=== PATIENT | male | born 1940 | race African-American/Black ===

== ENCOUNTER 2016-07-30 19:11 | Observation (INO) ==
[2016-07-30 20:12] LABS: Immature Granulocytes % 0.2 % (0-4)
[2016-07-30 20:14] LABS: Basophils # 0.1 K/mcL (0.0-0.2); Basophils % 1.3 %; Eosinophils # 0.1 K/mcL (0.0-0.6); Eosinophils % 1.8 %; Hematocrit 26.9 % (37.5-50.1); Immature Platelets 5.9 % (1.1-6.1); Lymphocytes # 1.7 K/mcL (0.6-4.6); Lymphocytes % 31.5 %; Mean Corpuscular Hemoglobin 16.3 pg (28.0-33.3); Mean Corpuscular Volume 62.7 fL (83.0-100.0); Mean Platelet Volume 10.1 fL (9.4-12.4); Monocytes # 0.9 K/mcL (0.0-1.3); Monocytes % 16.8 %; Platelet Count 362 K/mcL (140-400); Red Blood Count 4.29 M/mcL (4.19-5.50); Red Cell Distribution Width 21.2 % (11.5-14.5); Segmented Neutrophils % 48.4 %
[2016-07-30 20:25] LABS: BUN/Creatinine Ratio 22 (6-26); Blood Urea Nitrogen 20 mg/dL (8-26); Calcium 9.2 mg/dL (8.6-10.8); Carbon Dioxide 24 mEq/L (19-29); Chloride 105 mEq/L (98-109); Glucose 109 mg/dL (70-99); Osmolality,Calculated 291 (280-300); Potassium 4.6 mEq/L (3.5-4.5); Sodium 139 mEq/L (136-145); eGFR For African Americans > 60 (> 60); eGFR For Non-African Americans > 60 (> 60)
[2016-07-30 20:26] LABS: Neutrophils # 2.7 K/mcL (1.6-8.9)
[2016-07-30 20:33] LABS: Anisocytosis 1+ (Not Present); Hypochromasia Present (Not Present); Large Platelets Present (Not Present); Microcytosis Present (Not Present)
--- NOTE | 2016-07-30 21:33 | Emergency Department Note ---
Disposition Clinical Impression: Congestive heart failure Qualifiers: Congestive heart failure type: unspecified congestive heart failure type Congestive heart failure chronicity: unspecified congestive heart failure chronicity Qualified Code(s): I50.9 - Heart failure, unspecified Anemia Qualifiers: Anemia type: unspecified type Qualified Code(s): D64.9 - Anemia, unspecified Disposition: Admitted As Inpatient Condition: Fair Referrals: Terry Arboleda MD [Primary Care Provider] - Forms: ED Satisfaction Letter Time of Disposition: 22:33 SOB HPI - General Chief Complaint: ED Shortness of Breath/Dyspnea Stated Complaint: sent from urgent care abdominal pain fay Time Seen by Provider: 07/30/16 20:28 Source: patient, family Limitations: no limitations Nursing Notes Reviewed: Yes Vital Signs Reviewed: Yes - History of Present Illness Patient is a 76-year-old -[place] male presents from urgent care with one-week history of her sitting weakness, fatigue, dyspnea on exertion. Patient states that dyspnea improves with rest. Patient states that his fatigue and dyspnea on exertion are worsened by walking too far. Patient states that he is capable of walking about 50 feet before becoming short of breath. He states that he is able to climb only one flight of stairs without stopping. Patient denies any headache, dizziness, chest pain, racing heart, palpitations, leg swelling, dyspnea at rest, cough, wheeze, abdominal pain, nausea, vomiting, diarrhea, constipation, hematochezia, melena, dysuria, hematuria. Patient does admit recent trauma to chest. Patient states that one week ago he tripped over a heater during the night in his home following on his ribs. He should not has a history of NC with stent placement 22 years ago. - Related Data Allergies Allergy/AdvReac Type Severity Reaction Status Date / Time No Known Allergies Allergy Verified 07/30/16 19:13 All systems ED: reviewed and negative except as stated. Constitutional: Reports: as per HPI Eyes: Reports: as per HPI ENT ED: Reports: as per HPI Cardiovascular: Reports: as per HPI Gastrointestinal: Reports: as per HPI Genitourinary: Reports: as per HPI Musculoskeletal: Reports: as per HPI Integumentary: Reports: as per HPI Neurological: Reports: as per HPI Psychiatric: Reports: as per HPI Endocrine: Reports: as per HPI Hematological/Lymphatic: Reports: as per HPI Allergic/Immunologic: Reports: as per HPI Past Medical History - Past Medical History Medical history: Reports: diabetes, myocardial infarction - Social History Smoking Status: Former smoker Smokeless Tobacco Status: No Alcohol use: Reports: none Drug use: Reports: none Physical Exam - General Limitations: no limitations General appearance: alert, in no apparent distress - Head Head exam: atraumatic, normocephalic - Eye Eye exam: Present: normal appearance, EOMI - ENT ENT exam: normal exam, mucous membranes moist - Neck Neck exam: Present: normal inspection, full ROM. Absent: trachea midline, tenderness, lymphadenopathy - Chest Chest inspection: Present: normal inspection, symmetric chest wall rise, other ( Large scar to central chest). Absent: tenderness, rash - Respiratory Respiratory exam: Present: other (bilateral rales to lung bases left greater than right) - Cardiovascular Cardiovascular exam: Present: regular rate, normal rhythm, systolic murmur (2/6 systolic murmur), +S2. Absent: diastolic murmur - Abdominal Exam Abdominal exam: Present: soft, Non-Tender, normal bowel sounds. Absent: distention, guarding, rebound, rigidity, diminished bowel sounds - Extremities Exam Extremities exam: Present: normal inspection, full ROM - Neurological Exam Neurological exam: Present: alert, oriented X3, CN II-XII intact - Psychiatric Psychiatric exam: Present: normal affect, normal mood - Skin Skin exam: Present: warm, dry, intact Course Vital Signs Temperature 98 F 07/30/16 19:12 Pulse Rate 81 07/30/16 19:12 Respiratory Rate 20 07/30/16 19:12 Blood Pressure 119/74 07/30/16 19:12 O2 Sat by Pulse Oximetry 99 07/30/16 19:12 Temperature 98 F 07/30/16 19:12 Pulse Rate 81 07/30/16 19:12 Respiratory Rate 20 07/30/16 19:12 Blood Pressure 119/74 07/30/16 19:12 O2 Sat by Pulse Oximetry 99 07/30/16 19:12 Oxygen Delivery Oxygen Delivery Room Air Shortness of Breath/Dyspnea - [facility] Narrative Medical decision making narrative: Patient presents to the hospital from urgent care today with complaint of dyspnea on exertion and fatigue for the last week. Urgent care performed and chest x-ray which revealed bilateral pulmonary effusions and cardiomegaly. Upon arrival patient had an EKG which demonstrated normal sinus rhythm at a rate of 76 bpm, first-degree AV block, right bundle branch block. Patient had an initial troponin of 0.06, a BNP of 1000, and hemoglobin of 7.0. Patient will be admitted to the hospital for congestive heart failure and anemia. She is stable at this time. Patient was accepted by Dr. Shea, hospitalist. - Differential Diagnosis Likely: congestive heart failure - Medical Records Medical records reviewed: Yes I reviewed the patient's medical records. - Lab Data Lab results reviewed: Yes I reviewed the patient's lab results. Result diagrams: 07/30/16 20:04 07/30/16 20:04 Lab Results 07/30/16 07/30/16 07/30/16 Range/Units 20:04 20:04 20:04 WBC 5.5 (4.3-11.1) K/mcL RBC 4.29 (4.19-5.50) M/mcL Hgb 7.0 L (12.9-16.9) g/dL Hct 26.9 L (37.5-50.1) % MCV 62.7 L (83.0-100.0) fL MCH 16.3 L (28.0-33.3) pg MCHC 26.0 L (31.6-35.5) g/dL RDW 21.2 H (11.5-14.5) % Plt Count 362 (140-400) K/mcL MPV 10.1 (9.4-12.4) fL Immature Gran % 0.2 (0-4) % Seg Neutrophils % 48.4 % Lymphocytes % 31.5 % Monocytes % 16.8 % Eosinophils % 1.8 % Basophils % 1.3 % Neutrophils # 2.7 (1.6-8.9) K/mcL Lymphocytes # 1.7 (0.6-4.6) K/mcL Monocytes # 0.9 (0.0-1.3) K/mcL Eosinophils # 0.1 (0.0-0.6) K/mcL Basophils # 0.1 (0.0-0.2) K/mcL Large Platelets Present A (Not Present) Immature Plt Fraction 5.9 (1.1-6.1) % Hypochromasia Present A (Not Present) Anisocytosis 1+ A (Not Present) Microcytosis Present A (Not Present) Sodium 139 (136-145) mEq/L Potassium 4.6 H (3.5-4.5) mEq/L Chloride 105 (98-109) mEq/L Carbon Dioxide 24 (19-29) mEq/L BUN 20 (8-26) mg/dL Creatinine 0.92 (0.72-1.25) mg/dL Est GFR ( Amer) > 60 (> 60) Est GFR (Non-Af Amer) > 60 (> 60) BUN/Creatinine Ratio 22 (6-26) Glucose 109 H (70-99) mg/dL Calculated Osmolality 291 (280-300) Calcium 9.2 (8.6-10.8) mg/dL Troponin I 0.06 H* (0-0.03) ng/mL B-Natriuretic Peptide (0-100) pg/mL 07/30/16 Range/Units 20:04 WBC (4.3-11.1) K/mcL RBC (4.19-5.50) M/mcL Hgb (12.9-16.9) g/dL Hct (37.5-50.1) % MCV (83.0-100.0) fL MCH (28.0-33.3) pg MCHC (31.6-35.5) g/dL RDW (11.5-14.5) % Plt Count (140-400) K/mcL MPV (9.4-12.4) fL Immature Gran % (0-4) % Seg Neutrophils % % Lymphocytes % % Monocytes % % Eosinophils % % Basophils % % Neutrophils # (1.6-8.9) K/mcL Lymphocytes # (0.6-4.6) K/mcL Monocytes # (0.0-1.3) K/mcL Eosinophils # (0.0-0.6) K/mcL Basophils # (0.0-0.2) K/mcL Large Platelets (Not Present) Immature Plt Fraction (1.1-6.1) % Hypochromasia (Not Present) Anisocytosis (Not Present) Microcytosis (Not Present) Sodium (136-145) mEq/L Potassium (3.5-4.5) mEq/L Chloride (98-109) mEq/L Carbon Dioxide (19-29) mEq/L BUN (8-26) mg/dL Creatinine (0.72-1.25) mg/dL Est GFR ( Amer) (> 60) Est GFR (Non-Af Amer) (> 60) BUN/Creatinine Ratio (6-26) Glucose (70-99) mg/dL Calculated Osmolality (280-300) Calcium (8.6-10.8) mg/dL Troponin I (0-0.03) ng/mL B-Natriuretic Peptide 1097 H (0-100) pg/mL - Radiology Data Radiology results reviewed: Yes I reviewed the patient's radiology results. - EKG Data EKG attestation: Yes I reviewed and interpreted this EKG. EKG results narrative: Normal sinus rhythm at rate of 76 bpm with first-degree AV block and right bundle branch block Attestation Statement - Attestation Attestation: I, Te Maria MD, personally evaluated this patient and discussed their management with the resident physician. I reviewed the resident's note and agree with the documented findings, medical decision making, and plan of care. 76-year-old male presents to the emergency department with a complaint of increasing shortness of breath and fatigue with exertion over the past week. No chest pain. He was apparently seen by PCP and referred to urgent care for a chest x-ray of the and referred here for further evaluation. Patient states he does have a history of an NC more than 20 years ago. He has a history of diabetes and hypertension. On examination patient is a well-developed well-nourished well-appearing elderly male in no acute distress. He is alert and oriented 3. There is no cyanosis or diaphoresis. Chest is nontender to palpation. Breath sounds are decreased but equal bilaterally with no rales or wheezes noted. Heart regular rate and rhythm. Abdomen is soft and nontender with normal bowel sounds. Labs reviewed. Hemoglobin 7.0. Troponin 0.06. No acute changes on EKG. Chest x-ray done at urgent care showed mild pulmonary vascular congestion and interstitial edema without overt pulmonary edema. Also small bilateral pleural effusions with mild bibasilar atelectasis or infiltrates. The hospitalist, Dr. Shea, was consulted and accepted admission of the patient.
[2016-07-30] MEDS ORDERED: Furosemide 40 MG/4 ML VIAL IVP ONE (21:58)
[2016-07-31] MEDS ORDERED: Acetaminophen 325 MG TABLET PO PRN (04:43)
[2016-07-31] MEDS ORDERED: Naloxone 0.4 MG/ML INJ IVP PRN (04:43)
[2016-07-31] MEDS ORDERED: *HR* Morphine 2 MG/ML SYRINGE IVP PRN (04:43)
[2016-07-31] MEDS ORDERED: Ondansetron 4 MG/2 ML VIAL IVP PRN (04:43)
[2016-07-31] MEDS ORDERED: D5% in Water 1,000 ML IVC PRN (04:49)
[2016-07-31] MEDS ORDERED: *HR* Dextrose 50 % in Water (Syg) 50 ML SYRINGE IVP PRN (04:49)
[2016-07-31] MEDS ORDERED: Albuterol 2.5 MG/3 ML NEBULIZER IH PRN (04:49)
[2016-07-31] MEDS ORDERED: Dextrose Gel 15 GM PO PRN ×2 (04:49)
--- NOTE | 2016-07-31 05:08 | Internal Med History&Physical ---
Date of Encounter: 07/31/16 Time of Encounter: 04:52 Assessment and Plan (1) Symptomatic anemia Current visit: Yes Status: Acute 1. I do not feel he has CHF; rather I feel he has symptomatic anemia causing his exertional dyspnea. 2. Will collect iron studies and transfuse PRBC's in hopes of alleviating his symptoms. 3. Pt will need EGD +/- colonoscopy -- can be done as outpatient unless he has active bleeding. He does not give nay history of bleeding, however. 4. Start IV PPI BID. 5. Stool hemoccult. (2) Hypertension Current visit: Yes Status: Chronic 1. Continue home BP meds; adjust as necessary. 2. Will check ECHO to evaluate cardiac anatomy and to rule out pericardial effusion given chest wall trauma recently. Qualifiers: Hypertension type: essential hypertension Qualified Code(s): I10 - Essential (primary) hypertension (3) Type 2 diabetes mellitus Current visit: Yes Status: Chronic 1. Hold Metformin. 2. Will use SSI and monitor glucose closely. 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 EPCD's. Internal Medicine - H&P: HPI Chief complaint: SOB Admitted From: Emergency Dept Plans for Post Hospital Care: Home History of present illness: Mr. Perez is a 76 year old male who was seen in the ER earlier [facility] for complaints of exertional dyspnea. Symptoms started a few days ago, and this prompted him to contact his family doctors office. He was referred to the urgent care, and he was seen and evaluated. Chest x-ray revealed some cardiomegaly and concern for pulmonary vascular congestion. As such, there was concern for CHF, and he was referred to the ER. In the ER, he was treated for CHF empirically and admitted to the hospitalist service. Upon my assessment of the patient, he reiterates that he developed dyspnea on exertion over the last couple days. He denies any chest pain, edema, weight gain, increasing abdominal girth, or chest pressure. He fell a few days ago and landed on his space heater, sustaining mild injury to his chest wall. Thereafter, he developed shortness of breath. He denies any history of heart failure in the past. He does have a history of coronary disease and had a PTCA/ stent 22 years ago. He also is a former smoker and smoked about 35-40 years. He has never been diagnosed with COPD, but I suspect he has some underlying COPD. He was given dose of Lasix in the ER for treatment of presumptive CHF. However, he does not feel any better despite the diuresis. I note that he is profoundly anemic, and I inquired about any possible GI blood loss. He denies any bleeding in his stool, but he did confirm to me had a history of gastric ulcers many years ago leading to multiple transfusions back then. He had a colonoscopy a few years ago which he reports was negative. He has not had an EGD in over 15 years, however. He denies any frequent use of NSAIDs. He seldom ever uses ibuprofen, but he does take a daily aspirin. He he usually uses Tylenol for daily aches and pains. He denies any alcohol use. Past Med Surg Social Fam HX - Past Medical History Attestation: Yes The following information was validated with the patient. Source: patient, old records reviewed Medical history: diabetes, myocardial infarction Psychiatric history: no psych history - Past Surgical History Surgical History: angioplasty/stent - Social History Smoking Status: Former smoker Smokeless Tobacco Status: No Alcohol use: none Drug use: none - Family History Mother Living Status: Hx Family GI Disorders: No Father Living Status: Hx Family GI Disorders: No Internal Medicine - H&P: Meds Acetaminophen [Tylenol] 650 mg PO Q6HR PRN 07/30/16 [History] Amlodipine Besylate 10 mg PO DAILY 07/30/16 [History] Aspirin Enteric Coated [Aspirin EC] 81 mg PO DAILY 07/30/16 [History] Metformin HCl [Glucophage] 1,000 mg PO BID 07/30/16 [History] Omeprazole [PriLOSEC] 20 mg PO DAILY 07/30/16 [History] Allergies No Known Allergies Allergy (Verified 07/30/16 19:13) - Constitutional Constitutional: no chills, no fever(s) - EENT Eyes: no blurry vision, no change in vision Ears: no ear pain, no tinnitus Nose, mouth and throat: no nasal congestion, no sinus pressure, no sore throat - Cardiovascular Cardiovascular ROS IM: dyspnea, dyspnea on exertion, no chest pain, no diaphoresis, no edema, no lightheadedness, no orthopnea, no palpitations, no paroxysmal nocturnal dyspnea - Respiratory Respiratory: no cough, no dyspnea, no hemoptysis, no dyspnea on exertion, no pain on inspiration, no chest congestion - Gastrointestinal Gastrointestinal: no abdominal pain, no diarrhea, no early satiety, no hematemesis, no hematochezia, no melena, no nausea, no vomiting - Genitourinary Genitourinary ROS male: no dysuria, no flank pain, no hematuria - Musculoskeletal Musculoskeletal ROS IM: stiffness, no joint swelling, no limited range of motion - Integumentary Integumentary IM: no rash, no jaundice - Neurological Neurological ROS: no dizziness, no focal weakness, no frequent falls, no headache(s), no vertigo - Psychiatric Psychiatric: no anxiety, no depression - Endocrine Endocrine IM: no cold intolerance, no heat intolerance, no polydipsia, no polyuria - Hematologic/Lymphatic Hematologic/Lymphatic: no easy bruising, no lymphadenopathy - Allergic/Immunologic Allergic/Immunologic: no wheezing, no GI upset with certain foods - Constitutional Vitals: Temp Pulse Resp BP Pulse Ox 97.7 F 85 15 187/91 97 07/31/16 04:32 07/31/16 04:32 07/31/16 04:32 07/31/16 04:32 07/31/16 04:32 General appearance: Present: cooperative, A&O X 3, pleasant, no acute distress, answers questions appropriately - Head Head exam: Present: atraumatic, normal inspection - Expanded Head Exam Head exam expanded: Absent: abrasion, contusion, general tenderness - Eye Eye exam: Present: EOMI, normal appearance, PERRL. Absent: scleral icterus Pupils: Present: normal accommodation - ENT ENT exam: Present: mucous membranes dry, normal exam, normal oropharynx - Neck Neck exam general surgery: Present: full ROM, supple. Absent: lymphadenopathy, tenderness, thyromegaly - Expanded Neck Exam Neck exam: Absent: anterior neck swelling, carotid bruit, tenderness - Respiratory Respiratory exam: Present: decreased breath sounds, wheezes. Absent: accessory muscle use, chest wall tenderness, rales, respiratory distress, rhonchi - Cardiovascular Cardiovascular exam: Present: RRR, +S1, +S2. Absent: diastolic murmur, JVD, systolic murmur - GI/Abdominal GI/Abdominal exam: Present: normal bowel sounds, soft. Absent: guarding, hepatomegaly, mass, rebound, splenomegaly, tenderness - Extremities Exam Extremities exam: Present: full ROM, radial pulses palpable and symetrical. Absent: calf tenderness, joint swelling - Back Exam Back exam: Present: normal inspection. Absent: CVA tenderness (L), CVA tenderness (R) - Neurological Exam Neurological exam: Present: alert, CN II-XII intact, oriented X3, no focal deficits - Psychiatric Psychiatric exam: Present: normal affect, normal mood - Skin Skin exam: Present: dry, warm. Absent: rash Internal Med - H&P Results - Labs CBC & Chem 7: 07/30/16 20:04 07/30/16 20:04 - EKG Data -: EKG Interpreted by Myself EKG shows normal: sinus rhythm - EKG Data Prior EKG available for review: yes When compared to previous EKG: there is no significant change EKG comments: 07/31/16 05:16 Sinus rhythm; RBBB - Diagnostic Studies Chest x-ray Status: image reviewed by me (cardiomegaly but I don't appreciate CHF findings)
[2016-07-31 05:44] LABS: INR 1.4; Prothrombin Time 14.9 Seconds (9.4-12.1)
[2016-07-31 05:45] LABS: Basophils % 1.3 %; Hemoglobin 6.8 g/dL (12.9-16.9); Hemoglobin A1C 5.6 %
[2016-07-31 05:46] LABS: Basophils # 0.1 K/mcL (0.0-0.2); Eosinophils # 0.1 K/mcL (0.0-0.6); Eosinophils % 1.9 %; Hematocrit 25.3 % (37.5-50.1); Immature Granulocytes % 0.2 % (0-4); Lymphocytes # 1.2 K/mcL (0.6-4.6); Lymphocytes % 25.5 %; Mean Corpuscular HGB Conc 26.9 g/dL (31.6-35.5); Mean Corpuscular Hemoglobin 16.7 pg (28.0-33.3); Mean Corpuscular Volume 62.2 fL (83.0-100.0); Mean Platelet Volume 10.7 fL (9.4-12.4); Monocytes # 0.7 K/mcL (0.0-1.3); Monocytes % 15.1 %; Neutrophils # 2.6 K/mcL (1.6-8.9); Platelet Count 373 K/mcL (140-400); Red Blood Count 4.07 M/mcL (4.19-5.50); Red Cell Distribution Width 21.4 % (11.5-14.5)
[2016-07-31 05:47] LABS: Activated Partial Thrombo Time 31.7 Seconds (26.0-36.0)
[2016-07-31 05:55] LABS: % Iron Saturation 2 % (20-55); Alanine Aminotransferase 14 Units/L (0-55); Albumin 3.4 g/dL (3.5-5.0); Albumin/Globulin Ratio 0.8 (1.1-2.2); Alkaline Phosphatase 55 Units/L (38-126); Aspartate Amino Transferase 21 Units/L (5-34); BUN/Creatinine Ratio 21 (6-26); Bilirubin,Total 0.5 mg/dL (0.2-1.2); Blood Urea Nitrogen 20 mg/dL (8-26); Calcium 8.9 mg/dL (8.6-10.8); Carbon Dioxide 25 mEq/L (19-29); Chloride 104 mEq/L (98-109); Globulin 4.2 g/dL (2.4-3.5); Glucose 141 mg/dL (70-99); Iron 9 mcg/dL (65-175); Magnesium 1.9 mg/dL (1.6-2.6); Osmolality,Calculated 289 (280-300); Potassium 4.2 mEq/L (3.5-4.5); Sodium 137 mEq/L (136-145); Total Protein 7.6 g/dL (6.0-8.3); Transferrin 306 mg/dL (174-364); eGFR For African Americans > 60 (> 60); eGFR For Non-African Americans > 60 (> 60)
[2016-07-31 06:40] LABS: Anisocytosis 1+ (Not Present); Hypochromasia Present (Not Present); Microcytosis Present (Not Present); Platelet Estimate Normal (Normal)
[2016-07-31] MEDS: Insulin LISPRO 300 UNITS/3 ML VIAL SQ SCH ×3 (08:12→16:41)
[2016-07-31] MEDS ORDERED: 0.9 % Sodium Chloride 500 ML ONE (08:13)
[2016-07-31] MEDS: amLODIPine 5 MG TABLET PO SCH (08:16)
[2016-07-31] MEDS: Pantoprazole 40 MG VIAL IVP SCH ×2 (08:16→19:58)
[2016-07-31] MEDS: Aspirin Enteric Coated 81 MG Tablet PO SCH (08:16)
[2016-07-31] MEDS: Sucralfate 1 GM TABLET PO SCH ×4 (08:16→20:00)
--- NOTE | 2016-07-31 10:48 | Event Note ---
Date of Encounter: 07/31/16 Time of Encounter: 10:45 patient seen at the bedside, denies any other complaints. started on blood transfusion last night, getting second unit now. he denies any sob or chest pain at this time, he was given 40 mg of IV lasix at ED CXR showed intertitial edema , BNP is elevated, mild elevation of trop, no leg edema SOB may be 2/2 new onset CHF or anemia he denies black stool, hematemesis, last colonoscopy 1 yr ago which was unremarkable will follow ECHO results, if CHF, will consult Cardio. repeat cbc after 2 units, follow occult stool results, if positive he will need EGD/colonosocpy which can be done as OP.
[2016-07-31] MEDS: Ipratropium/Albuterol Neb 3 ML IH SCH ×4 (10:53→21:56)
[2016-07-31] MEDS ORDERED: Furosemide 20 MG/2 ML VIAL IVP ONE (10:59)
[2016-07-31 15:45] LABS: Basophils # 0.1 K/mcL (0.0-0.2); Basophils % 0.9 %; Eosinophils # 0.1 K/mcL (0.0-0.6); Hematocrit 30.1 % (37.5-50.1); Immature Granulocytes % 0.2 % (0-4); Immature Platelets 5.9 % (1.1-6.1); Lymphocytes # 1.8 K/mcL (0.6-4.6); Lymphocytes % 27.6 %; Mean Corpuscular HGB Conc 27.9 g/dL (31.6-35.5); Mean Corpuscular Hemoglobin 18.1 pg (28.0-33.3); Mean Corpuscular Volume 64.7 fL (83.0-100.0); Mean Platelet Volume 9.5 fL (9.4-12.4); Monocytes # 1.1 K/mcL (0.0-1.3); Monocytes % 16.7 %; Neutrophils # 3.4 K/mcL (1.6-8.9); Platelet Count 338 K/mcL (140-400); Red Blood Count 4.65 M/mcL (4.19-5.50); Red Cell Distribution Width 22.7 % (11.5-14.5); Segmented Neutrophils % 52.6 %
[2016-07-31 15:47] LABS: Hemoglobin 8.4 g/dL (12.9-16.9)
[2016-07-31 16:17] LABS: Anisocytosis 2+ (Not Present); Hypochromasia Present (Not Present); Large Platelets Present (Not Present); Microcytosis Present (Not Present); Ovalocytes 1+ (Not Present); Platelet Estimate Normal (Normal); Poikilocytosis 2+ (Not Present); Target Cells 1+ (Not Present)
--- NOTE | 2016-07-31 17:15 | ECHO - Doppler Report ---
Echocardiogram Name: Aaron Perez Date of Study: 07/31/2016 Date: 1940 Ht: 75.0 in Medical Record#: [id number] Age: 76 Wt: 205.0 lb Gender: Male BSA: 2.22 Order #: [id number] Location: [facility] Room #: 2A33 Reading Physician: Rainer Marlow DO, FACC, WAQAR Motor Racer: ARIC BishopT, [facility] Ordering Physician: Broderick Neumann MD Primary Physician: Terry Arboleda MD Indications: Exertional dyspnea Impressions: LVEF 30-35%. Left ventricle is mildly dilated. Moderate concentric left ventricular hypertrophy. Global left ventricular systolic dysfunction. Mild left ventricular diastolic dysfunction. Normal right ventricular size with mildly reduced function. Moderate to severely dilated left atrium. Mild mitral regurgitation. Mild tricuspid regurgitation. Severe pulmonary hypertension. Estimated RVSP is 58 mmHg. Left Ventricular Wall Motion: Rest Echo Findings The apex, apical inferior, mid inferior, basal inferior, apical anterior, mid anterior, basal anterior, apical septal, mid inferior septal, basal inferior septal, apical lateral, mid anterior lateral, basal anterior lateral, mid anterior septal, mid inferior lateral, basal anterior septal and basal inferior lateral rudolph were hypokinetic. Findings: Study Quality * Technically adequate exam. ECG Findings * Normal sinus rhythm. Left Ventricle * LVEF 30-35%. * Left ventricle is mildly dilated. * Moderate concentric left ventricular hypertrophy. * Global left ventricular systolic dysfunction. * Mild left ventricular diastolic dysfunction. Right Ventricle * Normal right ventricular size with mildly reduced function. Left Atrium * Moderate to severely dilated left atrium. Right Atrium * Moderately dilated right atrium. Interatrial Septum * No evidence of PFO by color Doppler. Aortic Valve * Trileaflet aortic valve. * Mildly sclerotic aortic valve leaflets. * No aortic regurgitation. * No aortic stenosis. Mitral Valve * Mildly thickened mitral valve leaflets. * Mild mitral regurgitation. * No mitral stenosis. Tricuspid Valve * Normal tricuspid valve structure. * Mild tricuspid regurgitation. * Severe pulmonary hypertension. * Estimated RVSP is 58 mmHg. * Estimated RA pressure is 5 mmHg. Pulmonic Valve * Normal pulmonic valve structure and function. * Trace pulmonic regurgitation. Aorta * Normally sized aortic root. Pericardium * The pericardium appears normal. IVC * Normal IVC dimensions and inspiratory collapse. Pulmonary Artery * Normal visualized portions of the main pulmonary artery. History Diabetes Myocardial Infarction Measurements: BP: 171/ 91 2D Normal Values RVIDd: 3.40 cm <2.7 cm IVSd: 1.90 cm 0.6 - 1.0 cm LVIDd: 6.00 cm 3.7 - 5.6 cm LVPWd: 1.20 cm 0.6 - 1.1 cm LVIDs: 4.90 cm 1.5 - 3.6 cm AO: 3.20 cm < 4.0 cm LA: 4.50 cm 2.0 - 4.0cm %FS: 18.30 cm >25 % LA volume: 71 Mitral Valve Dec Time:165.00 msec Peak E:1.21 m/sec Peak A:1.46 m/sec E/A Ratio:0.8 Peak E' Lat Tim:5.65 cm/s Peak E' Med Tim:5.85 cm/s E/E' Lat Ratio:21.4 E/E' Med Ratio:20.7 Aortic Valve AI pressure Half-time: 487.00 msec Tricuspid Valve TV Regurg Peak Grad: 53.00mmHg TV Regurg Peak Tim: 3.63m/sec Updated by Rainer Marlow DO, FACJose, WAQAR, ALVIN on 07/31/2016 5:09:24 PM electronically signed on 07/31/2016 5:10:01 PM with status of Final Wall Motion Rivera: 1=Normal, 2=Hypokinesis, 3=Akinesis, 4=Dyskinesis, 5=Aneurysmal, 6=Hyperkinetic, X=Not Visualized (Blank)=Missing
[2016-07-31] MEDS ORDERED: GuaiFENesin Liq 200 MG/10 ML UDC PO PRN (20:57)
[2016-08-01] MEDS: Ipratropium/Albuterol Neb 3 ML IH SCH ×2 (04:06→11:22)
[2016-08-01 04:58] LABS: Cholesterol 96 mg/dL (< 200); HDL Cholesterol 32 mg/dL (40-59); LDL Cholesterol,Calculated 51 mg/dL (0-99); Triglycerides 63 mg/dL (< 150)
[2016-08-01 08:07] LABS: Basophils # 0.1 K/mcL (0.0-0.2); Basophils % 0.9 %; Eosinophils # 0.2 K/mcL (0.0-0.6); Eosinophils % 2.7 %; Hematocrit 28.5 % (37.5-50.1); Hemoglobin 7.9 g/dL (12.9-16.9); Immature Granulocytes % 0.3 % (0-4); Lymphocytes # 1.7 K/mcL (0.6-4.6); Lymphocytes % 24.7 %; Mean Corpuscular HGB Conc 27.7 g/dL (31.6-35.5); Mean Corpuscular Hemoglobin 17.8 pg (28.0-33.3); Mean Corpuscular Volume 64.3 fL (83.0-100.0); Mean Platelet Volume 10.9 fL (9.4-12.4); Monocytes # 1.1 K/mcL (0.0-1.3); Platelet Count 333 K/mcL (140-400); Red Blood Count 4.43 M/mcL (4.19-5.50); Red Cell Distribution Width 23.1 % (11.5-14.5); Segmented Neutrophils % 55.4 %
[2016-08-01 08:08] LABS: Neutrophils # 3.8 K/mcL (1.6-8.9)
[2016-08-01 08:15] LABS: BUN/Creatinine Ratio 18 (6-26); Blood Urea Nitrogen 17 mg/dL (8-26); Calcium 8.5 mg/dL (8.6-10.8); Carbon Dioxide 24 mEq/L (19-29); Chloride 100 mEq/L (98-109); Glucose 103 mg/dL (70-99); Osmolality,Calculated 280 (280-300); Potassium 3.7 mEq/L (3.5-4.5); Sodium 134 mEq/L (136-145); eGFR For African Americans > 60 (> 60); eGFR For Non-African Americans > 60 (> 60)
[2016-08-01] MEDS: Sucralfate 1 GM TABLET PO SCH ×2 (08:23→11:45)
[2016-08-01] MEDS: Insulin LISPRO 300 UNITS/3 ML VIAL SQ SCH (08:23)
[2016-08-01] MEDS: Pantoprazole 40 MG VIAL IVP SCH (08:24)
[2016-08-01] MEDS: Aspirin Enteric Coated 81 MG Tablet PO SCH (08:24)
[2016-08-01] MEDS: amLODIPine 5 MG TABLET PO SCH (08:24)
[2016-08-01 08:31] LABS: Anisocytosis 2+ (Not Present); Hypochromasia Present (Not Present); Microcytosis Present (Not Present)
[2016-08-01 08:32] LABS: Platelet Estimate Normal (Normal); Poikilocytosis 2+ (Not Present)
--- NOTE | 2016-08-01 11:27 | Cardiology Consult Note ---
Date of Encounter: 08/01/16 Time of Encounter: 11:00 Assessment and Plan (1) Congestive heart failure Current Visit: Yes Status: Acute Etiology and chronicity unclear. EF 30-35% per TTE. Reports remote hx of CAD s/ p PCI 21 years ago. TTE: EF 30-35%, LV mildly dilated, moderate cLVH, global systolic dysfunction, moderate to severely dilated LA, mild MR, TR. severe PH. Denies chest pain or discomfort. Presented with shortness of breath, has now resolved s/p x2 units PRBC. Mild volume overload upon exam--will start low dose of lasix. Recommend work-up for anemia to identify source/etiology prior to proceeding with invasive evaluation--LHC. Will start GDMT including betablocker, ACEi, and diuretic. CHF education discussed including Na/fluid restriction diet. Strict I&Os, daily weights, and Na/fluid restriction diet. He will need close outpatient follow-up with [facility]. Qualifiers: Congestive heart failure type: systolic Congestive heart failure chronicity : chronic Qualified Code(s): I50.22 - Chronic systolic (congestive) heart failure (2) Symptomatic anemia Current Visit: Yes Status: Acute Presented with H/H 7.0, 26.9--s/p x2 units PRBC and H/H 7.9, 28.5 Recommend GI work-up. Occult stool negative. Recommend anemia work-up prior to any cardiac invasive evaluation (3) CAD in [place] artery Current Visit: Yes Status: Acute Hx of CAD with remote PCI. Mild troponin elevation likely secondary to demand ischemia d/t severe anemia. PCP recently stopped statin. Continue asa and betablocker. Discussion w patient/family: The assessment and plan as outlined above was discussed with the patient and/or family members who expressed understanding and agreement. All questions were answered. Thank you for involving us in the care of your patient. Please call with any questions. History of Present Illness Consult date: 08/01/16 Requesting physician: Melva Dooley Consult reason: CHF Chief complaint: Weakness, shortness of breath History of present illness: Mr. Perez is a 76 year old male with PMH significant for DMII, HTN, HLD, and CAD s/p remote PCI (21 years ago) presented to the ED with complaints of weakness and increased shortness of breath. He states he was visiting his in the hospital when symptoms started. He called his PCP who recommend patient to go to Urgent care, he was then transferred to [facility] for further evaluation. CXR at urgent care demonstrated mild pulmonary vascular congestion. Upon arrival to ED, his HgB was noted to be 7.0 and is s/p x2 units of PRBC. He reports his symptoms have now resolved. Cardiology consulted today for systolic dysfunction, EF 30-35% on echo. Past Med Surg Social Fam HX - Past Medical History Medical history: diabetes, myocardial infarction Psychiatric history: no psych history - Past Surgical History Surgical History: angioplasty/stent - Social History Smoking Status: Former smoker Smokeless Tobacco Status: No Alcohol use: none Drug use: none - Family History Mother Living Status: Hx Family GI Disorders: No Father Living Status: Hx Family GI Disorders: No Medications and Allergies Acetaminophen [Tylenol] 650 mg PO Q6HR PRN 07/30/16 [History] Amlodipine Besylate 10 mg PO DAILY 07/30/16 [History] Aspirin Enteric Coated [Aspirin EC] 81 mg PO DAILY 07/30/16 [History] Metformin HCl [Glucophage] 1,000 mg PO BID 07/30/16 [History] Omeprazole [PriLOSEC] 20 mg PO DAILY 07/30/16 [History] Allergies No Known Allergies Allergy (Verified 07/30/16 19:13) All Systems Review: A 10-system review of systems was performed and is negative for pertinent findings except as documented above in the HPI. Results 08/01/16 04:23 08/01/16 04:23 Lab Results 07/31/16 07/31/16 07/31/16 11:08 15:36 17:09 WBC 6.5 Hgb 8.4 L D Hct 30.1 L Plt Count 338 Sodium Potassium Chloride Carbon Dioxide BUN Creatinine Glucose Calcium Troponin I 0.06 H* 0.06 H* B-Natriuretic Peptide 08/01/16 08/01/16 08/01/16 04:23 04:23 04:23 WBC 6.8 Hgb 7.9 L Hct 28.5 L Plt Count 333 Sodium 134 L Potassium 3.7 Chloride 100 Carbon Dioxide 24 BUN 17 Creatinine 0.94 Glucose 103 H Calcium 8.5 L Troponin I B-Natriuretic Peptide 1039 H Consult Discharge Plan - Plan Referrals: Terry Arboleda MD [Primary Care Provider] - (web request sent on 07/31/16)
[2016-08-01] MEDS ORDERED: Furosemide 20 MG TABLET PO SCH (11:30)
--- NOTE | 2016-08-01 12:25 | Discharge Summary ---
Date of Encounter: 08/01/16 Time of Encounter: 12:23 - Discharge Diagnosis (1) Congestive heart failure Priority: Primary Status: Acute Qualifiers: Congestive heart failure type: systolic Congestive heart failure chronicity : chronic Qualified Code(s): I50.22 - Chronic systolic (congestive) heart failure (2) Symptomatic anemia Priority: Primary Status: Acute (3) Hypertension Priority: Secondary Status: Chronic Qualifiers: Hypertension type: essential hypertension Qualified Code(s): I10 - Essential (primary) hypertension (4) Type 2 diabetes mellitus Priority: Secondary Status: Chronic Qualifiers: Diabetes mellitus complication status: without complication Diabetes mellitus terminologist insulin use: without snf use Qualified Code(s): E11.9 - Type 2 diabetes mellitus without complications (5) CAD in [place] artery Priority: Secondary Status: Acute - Discharge Medications Prescriptions: Carvedilol [Coreg] 3.125 mg PO BIDWM #60 tablet Ferrous Sulfate 325 mg PO BIDWM #60 tablet Furosemide [Lasix] 20 mg PO DAILY #30 tablet Lisinopril [Zestril] 5 mg PO DAILY #30 tablet Potassium Chloride 10 meq PO DAILY #30 tab.er.prt Home Medications: Acetaminophen [Tylenol] 650 mg PO Q6HR PRN 07/30/16 [History] Amlodipine Besylate 10 mg PO DAILY 07/30/16 [History] Aspirin Enteric Coated [Aspirin EC] 81 mg PO DAILY 07/30/16 [History] Metformin HCl [Glucophage] 1,000 mg PO BID 07/30/16 [History] Omeprazole [PriLOSEC] 20 mg PO DAILY 07/30/16 [History] Carvedilol [Coreg] 3.125 mg PO BIDWM #60 tablet 08/01/16 [Rx] Ferrous Sulfate 325 mg PO BIDWM #60 tablet 08/01/16 [Rx] Furosemide [Lasix] 20 mg PO DAILY #30 tablet 08/01/16 [Rx] Lisinopril [Zestril] 5 mg PO DAILY #30 tablet 08/01/16 [Rx] Potassium Chloride 10 meq PO DAILY #30 tab.er.prt 08/01/16 [Rx] Allergies/Adverse Reactions: Allergies No Known Allergies Allergy (Verified 07/30/16 19:13) Procedures/tests Complete & Pending: Procedures Performed prior 72 hours Category Date Time Status ECG 12 lead ECG [ECG] AM 0600 Y 07/31/16 06:00 Ordered ECG 12 lead ECG [ECG] Routine Y 08/01/16 06:22 Completed EV echocardiogram Routine Y 07/31/16 04:43 Completed Date of admission: 07/30/16 22:42 Primary care physician: Terry Arboleda MD Consults: 08/01/16 07:44 Consult to Cardiology [CONS] Routine Comment: Consulting Provider: [facility] Reason for Consult: please evaluate for new onset CHF systolic for possible ischemic work up. thank you Call Completed: No Discharging clinician: Melva Dooley Anticipated date of discharge: 08/01/16 - Patient Status Disposition: Home, Self-Care Condition: Fair Functional capacity at discharge: independent ambulation Overall status at discharge: patient is back to baseline - Discharge Instructions Instructions: Iron Supplements (By mouth), Lisinopril (By mouth), Furosemide ( By mouth), Potassium Chloride (By mouth), Carvedilol (By mouth), Iron Rich Diet (DC), Iron Deficiency Anemia (DC) Follow Up With: Terry Arboleda MD [Primary Care Provider] - (web request sent on 07/31/16) Terry Stanley MD [Partnered Physician] - (web request sent 08/01/16) Susan Diallo MD [Partnered Physician] - (web request place 08/01/16) - Diet and Activity Activity: resume usual activities as tolerated Diet: other (cardiac diet) Interval History: Mr. Perez is a 76 year old male with PMH significant for DMII, HTN, HLD, and CAD s/p remote PCI (21 years ago) presented to the ED with complaints of weakness and increased shortness of breath. He states he was visiting his in the hospital when symptoms started. He called his PCP who recommend patient to go to Urgent care, he was then transferred to [facility] for further evaluation. CXR at urgent care demonstrated mild pulmonary vascular congestion. Upon arrival to ED, his HgB was noted to be 7.0 and is s/p x2 units of PRBC. He reports his symptoms have now resolved. he denies any sob or chest pain at this time, he was given 40 mg of IV lasix at ED CXR showed intertitial edema , BNP is elevated, mild elevation of trop, no leg edema SOB may be 2/2 new onset CHF or anemia he denies black stool, hematemesis, last colonoscopy 1 yr ago which was unremarkable ECHO done showed EF 30-35% per TTE. Reports remote hx of CAD s/p PCI 21 years ago. LV mildly dilated, moderate cLVH, global systolic dysfunction, moderate to severely dilated LA, mild MR, TR. severe PH. Denies chest pain or discomfort. Presented with shortness of breath, has now resolved s/p x2 units PRBC. he was started on low dose of lasix. Cardiology was consulted for new onset CHF, as per cardio, Recommend work-up for anemia to identify source/etiology prior to proceeding with invasive evaluation--LHC. he was started on GDMT including betablocker, ACEi, and diuretic. CHF education discussed including Na/fluid restriction diet. Strict I&Os, daily weights, and Na/fluid restriction diet. He will need close outpatient follow-up with [facility]. stool occult is negative, iron level is low so he was started on iron replacement. he will further need possible EGD and colonoscopy however he prefers to do that as OP. It was recommneded that he be admitted to complete the workup however he insists that he will leave today and have the repeat CBC done in one week. He will be given follow-up with cardiology in 1 week as well and to be seen by GI as outpatient for further evaluation of his anemia. He is being discharged today in stable condition. Hospital course: Mr. Perez is a 76 year old male - Time Spent with Patient Total time spent providing and/or coordinating discharge services: - Constitutional Vitals: Temp Pulse Resp BP Pulse Ox 98.6 F 62 18 174/74 90 08/01/16 06:56 08/01/16 06:56 08/01/16 06:56 08/01/16 06:56 08/01/16 06:56 General appearance: Present: cooperative, A&O X 3, pleasant, no acute distress, answers questions appropriately Exam: - Head Head exam: Present: atraumatic, normal inspection - Expanded Head Exam Head exam expanded: Absent: abrasion, contusion, general tenderness - Eye Eye exam: Present: EOMI, normal appearance, PERRL. Absent: scleral icterus Pupils: Present: normal accommodation - ENT ENT exam: Present: mucous membranes dry, normal exam, normal oropharynx - Neck Neck exam general surgery: Present: full ROM, supple. Absent: lymphadenopathy, tenderness, thyromegaly - Expanded Neck Exam Neck exam: Absent: anterior neck swelling, carotid bruit, tenderness - Respiratory Respiratory exam: Present: decreased breath sounds, wheezes. Absent: accessory muscle use, chest wall tenderness, rales, respiratory distress, rhonchi - Cardiovascular Cardiovascular exam: Present: RRR, +S1, +S2. Absent: diastolic murmur, JVD, systolic murmur - GI/Abdominal GI/Abdominal exam: Present: normal bowel sounds, soft. Absent: guarding, hepatomegaly, mass, rebound, splenomegaly, tenderness - Extremities Exam Extremities exam: Present: full ROM, radial pulses palpable and symetrical. Absent: calf tenderness, joint swelling - Back Exam Back exam: Present: normal inspection. Absent: CVA tenderness (L), CVA tenderness (R) - Neurological Exam Neurological exam: Present: alert, CN II-XII intact, oriented X3, no focal deficits - Psychiatric Psychiatric exam: Present: normal affect, normal mood - Skin Skin exam: Present: dry, warm. Absent: rash
[2016-08-01 12:29] VITALS: BP 173/76
--- NOTE | 2016-08-01 12:35 | Electrocardiograph Report ---
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
--- NOTE | 2016-08-01 21:53 | Electrocardiograph Report ---
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
== END 2016-08-01 13:26 | disposition home or self-care (01) ==
LOC: EMEROO 19:11 → 2ANU 19:11
PROVIDERS: ADMIT Internal Medicine; ATTEND Internal Medicine

== ENCOUNTER 2016-08-23 18:13 | Observation (INO) ==
[2016-08-23 21:02] LABS: Alanine Aminotransferase 21 Units/L (0-55); Albumin 3.5 g/dL (3.5-5.0); Albumin/Globulin Ratio 0.8 (1.1-2.2); Alkaline Phosphatase 71 Units/L (38-126); Aspartate Amino Transferase 30 Units/L (5-34); BUN/Creatinine Ratio 14 (6-26); Bilirubin,Total 1.2 mg/dL (0.2-1.2); Blood Urea Nitrogen 14 mg/dL (8-26); Calcium 9.5 mg/dL (8.6-10.8); Carbon Dioxide 27 mEq/L (19-29); Chloride 102 mEq/L (98-109); Globulin 4.3 g/dL (2.4-3.5); Glucose 79 mg/dL (70-99); Osmolality,Calculated 283 (280-300); Potassium 4.4 mEq/L (3.5-4.5); Sodium 137 mEq/L (136-145); Total Protein 7.8 g/dL (6.0-8.3); eGFR For African Americans > 60 (> 60); eGFR For Non-African Americans > 60 (> 60)
[2016-08-23] MEDS ORDERED: Aspirin 81 MG TAB.CHEW PO STA (21:14)
[2016-08-23] MEDS ORDERED: Nitroglycerin 1 INCH/GM PACKET TP ONE (21:18)
[2016-08-23] MEDS ORDERED: *HR* Enoxaparin 100 MG/ML SYRINGE SQ STA (21:18)
[2016-08-23 21:27] LABS: Basophils # 0.1 K/mcL (0.0-0.2); Basophils % 1.6 %; Eosinophils # 0.3 K/mcL (0.0-0.6); Eosinophils % 3.9 %; Hematocrit 37.1 % (37.5-50.1); Hemoglobin 10.1 g/dL (12.9-16.9); Immature Granulocytes % 0.3 % (0-4); Lymphocytes % 29.1 %; Mean Corpuscular HGB Conc 27.2 g/dL (31.6-35.5); Mean Corpuscular Hemoglobin 19.1 pg (28.0-33.3); Mean Corpuscular Volume 70.3 fL (83.0-100.0); Mean Platelet Volume 11.1 fL (9.4-12.4); Neutrophils # 3.5 K/mcL (1.6-8.9); Platelet Count 352 K/mcL (140-400); Red Blood Count 5.28 M/mcL (4.19-5.50); Red Cell Distribution Width 29.3 % (11.5-14.5); Segmented Neutrophils % 51.1 %
[2016-08-23 21:31] LABS: Anisocytosis 3+ (Not Present); Hypochromasia Present (Not Present)
[2016-08-23 21:32] LABS: Platelet Estimate Normal (Normal)
[2016-08-23] MEDS ORDERED: Furosemide 40 MG/4 ML VIAL IVP ONE (22:23)
[2016-08-24] MEDS ORDERED: Naloxone 0.4 MG/ML INJ IVP PRN ×2 (00:34→00:39)
[2016-08-24] MEDS ORDERED: Ondansetron 4 MG/2 ML VIAL IVP PRN (00:39)
[2016-08-24] MEDS ORDERED: Acetaminophen 325 MG TABLET PO PRN (00:39)
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
[2016-08-24] MEDS ORDERED: D5% in Water 1,000 ML IVC PRN (01:04)
[2016-08-24] MEDS ORDERED: *HR* Dextrose 50 % in Water (Syg) 50 ML SYRINGE IVP PRN (01:04)
[2016-08-24] MEDS ORDERED: Dextrose Gel 15 GM PO PRN ×2 (01:04)
[2016-08-24 03:22] LABS: BUN/Creatinine Ratio 16 (6-26); Blood Urea Nitrogen 16 mg/dL (8-26); Calcium 8.9 mg/dL (8.6-10.8); Carbon Dioxide 28 mEq/L (19-29); Chloride 102 mEq/L (98-109); Glucose 86 mg/dL (70-99); Magnesium 1.8 mg/dL (1.6-2.6); Osmolality,Calculated 290 (280-300); Potassium 3.8 mEq/L (3.5-4.5); Sodium 140 mEq/L (136-145); eGFR For African Americans > 60 (> 60); eGFR For Non-African Americans > 60 (> 60)
[2016-08-24 03:58] LABS: Basophils # 0.1 K/mcL (0.0-0.2); Basophils % 1.4 %; Eosinophils # 0.3 K/mcL (0.0-0.6); Eosinophils % 4.8 %; Hemoglobin 9.7 g/dL (12.9-16.9); Immature Granulocytes % 0.2 % (0-4); Immature Platelets 6.9 % (1.1-6.1); Lymphocytes # 1.9 K/mcL (0.6-4.6); Lymphocytes % 29.5 %; Mean Corpuscular HGB Conc 27.7 g/dL (31.6-35.5); Mean Corpuscular Hemoglobin 19.3 pg (28.0-33.3); Mean Corpuscular Volume 69.7 fL (83.0-100.0); Monocytes # 0.9 K/mcL (0.0-1.3); Monocytes % 14.1 %; Neutrophils # 3.2 K/mcL (1.6-8.9); Platelet Count 334 K/mcL (140-400); Red Blood Count 5.02 M/mcL (4.19-5.50); Red Cell Distribution Width 29.1 % (11.5-14.5)
[2016-08-24 04:03] LABS: Anisocytosis 3+ (Not Present); Microcytosis Present (Not Present)
[2016-08-24 04:04] LABS: Platelet Estimate Normal (Normal); Target Cells 1+ (Not Present)
[2016-08-24 04:05] LABS: Large Platelets Present (Not Present); Ovalocytes 1+ (Not Present); Poikilocytosis 2+ (Not Present); Polychromasia 1+ (Not Present)
[2016-08-24 04:06] LABS: Hypochromasia Present (Not Present)
--- NOTE | 2016-08-24 05:24 | Internal Med History&Physical ---
Date of Encounter: 08/24/16 Time of Encounter: 01:00 Assessment and Plan (1) Congestive heart failure Current visit: No Status: Acute CHF. With the mild exacerbation. - We will continue IV Lasix. Strict in and out. - Continue beta louise an GERARDO inhibitor. Qualifiers: Congestive heart failure type: systolic Congestive heart failure chronicity : chronic Qualified Code(s): I50.22 - Chronic systolic (congestive) heart failure (2) Type 2 diabetes mellitus Current visit: No Status: Chronic cover patient with sliding scale Qualifiers: Diabetes mellitus complication status: without complication Diabetes mellitus residential insulin use: without residential use Qualified Code(s): E11.9 - Type 2 diabetes mellitus without complications (3) DVT prophylaxis Current visit: No Status: Acute Patient was given one full dose Lovenox in emergency room because of elevated troponin. May continue heparin subcutaneously from p.m. (4) CAD in [place] artery Current visit: No Status: Acute No chest pain. Continue home medications. Internal Medicine - H&P: HPI Chief complaint: Exertional shortness of breath Admitted From: Home Plans for Post Hospital Care: Home History of present illness: Mr. Perez is a 76 year old male presented to ER because of fall. Patient has mechanical fall 4 days ago, no loss of consciousness. Patient was examined by ER doctor, no obvious injury. However, patient was noticed exertional shortness of breath. He has elevated BNP and chest x-ray shows pulmonary vascular congestion. Patient has a history of CHF with LVEF 30-35 %. Per patient, his shortness of breath is about his baseline. Patient was admitted as CHF exacerbation. Discussed CODE STATUS with patient. He is Full Code. Past Med Surg Social Fam HX - Past Medical History Medical history: CHF, coronary artery disease, diabetes, hyperlipidemia, hypertension, myocardial infarction, syncope, other Psychiatric history: no psych history - Past Surgical History Surgical History: angioplasty/stent - Social History Smoking Status: Never smoker Smokeless Tobacco Status: No Alcohol use: none Drug use: none - Family History Mother Living Status: Hx Family Cancer: Yes (colon) Hx Family GI Disorders: No Father Living Status: Hx Family GI Disorders: Yes (ulcers) Internal Medicine - H&P: Meds Acetaminophen [Tylenol] 650 mg PO Q6HR PRN 07/30/16 [History] Amlodipine Besylate 10 mg PO DAILY 07/30/16 [History] Aspirin Enteric Coated [Aspirin EC] 81 mg PO DAILY 07/30/16 [History] Metformin HCl [Glucophage] 1,000 mg PO BID 07/30/16 [History] Omeprazole [PriLOSEC] 20 mg PO DAILY 07/30/16 [History] Carvedilol [Coreg] 3.125 mg PO BIDWM #60 tablet 08/01/16 [Rx] Ferrous Sulfate 325 mg PO BIDWM #60 tablet 08/01/16 [Rx] Furosemide [Lasix] 20 mg PO DAILY #30 tablet 08/01/16 [Rx] Lisinopril [Zestril] 5 mg PO DAILY #30 tablet 08/01/16 [Rx] Potassium Chloride 10 meq PO DAILY #30 tab.er.prt 08/01/16 [Rx] Atorvastatin [Lipitor] 40 mg PO HS 08/23/16 [History] Allergies No Known Allergies Allergy (Verified 07/30/16 19:13) All Systems PM: A 10-system review of systems was performed and is negative for pertinent findings except as documented above in the HPI. - Constitutional Vitals: Temp Pulse Resp BP Pulse Ox 97.6 F 62 16 155/80 97 08/23/16 18:28 08/24/16 00:45 08/24/16 00:45 08/24/16 00:45 08/24/16 00:45 General appearance: Present: A&O X 3, no acute distress, answers questions appropriately - Head Head exam: Present: atraumatic, normocephalic - Eye Eye exam: Present: PERRL, conjuntiva pink, sclera anicteric Pupils: Present: PERRL - Neck Neck exam general surgery: Present: supple, trachea midline. Absent: lymphadenopathy - Respiratory Respiratory exam: Present: CTAB. Absent: accessory muscle use, rales, rhonchi, wheezes - Cardiovascular Cardiovascular exam: Present: RRR, +S1, +S2. Absent: diastolic murmur, gallop, rubs, systolic murmur - GI/Abdominal GI/Abdominal exam: Present: normal bowel sounds, soft, no peritoneal signs. Absent: distended, tenderness - Extremities Exam Extremities exam: Present: warm, radial pulses palpable and symetrical. Absent : calf tenderness, cyanotic, pedal edema - Neurological Exam Neurological exam: Present: CN II-XII intact, oriented X3, no focal deficits. Absent: pronater drift, facial droop, speech deficit - Skin Skin exam: Present: dry, intact Internal Med - H&P Results - Labs CBC & Chem 7: 08/24/16 02:59 08/24/16 02:59 Labs: Short CBC 08/24/16 Range/Units 02:59 WBC 6.3 (4.3-11.1) K/mcL Hgb 9.7 L (12.9-16.9) g/dL Hct 35.0 L (37.5-50.1) % Plt Count 334 (140-400) K/mcL Neutrophils # 3.2 (1.6-8.9) K/mcL BMP 08/24/16 02:59 Sodium 140 Potassium 3.8 Chloride 102 Carbon Dioxide 28 BUN 16 Creatinine 0.99 Glucose 86 Calcium 8.9 Cardiac Enzymes 08/24/16 Range/Units 02:59 Troponin I 0.05 H* (0-0.03) ng/mL
[2016-08-24] MEDS: Insulin LISPRO 300 UNITS/3 ML VIAL SQ SCH ×3 (08:17→16:51)
[2016-08-24] MEDS ORDERED: Furosemide 20 MG TABLET PO SCH (09:00)
[2016-08-24] MEDS: Furosemide 40 MG/4 ML VIAL IVP SCH (09:16)
[2016-08-24] MEDS: Aspirin Enteric Coated 81 MG Tablet PO SCH (10:56)
[2016-08-24] MEDS: amLODIPine 5 MG TABLET PO SCH (10:56)
[2016-08-24] MEDS: *HR* Heparin 5,000 UNIT/ML VIAL SQ SCH (16:50)
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
[2016-08-24] MEDS ORDERED: Insulin LISPRO 300 UNITS/3 ML VIAL SQ SCH (21:00)
--- NOTE | 2016-08-25 00:03 | Electrocardiograph Report ---
[address] [place], [place] [address] Test Date: 2016-08-23 Pat Name: Aaron Perez Department: 102 Room: [facility] Gender: M Rn Utilization Management Um: Keshav : 1940 Requested By: Farrukh Gudino Order Number: [id number] Reading MD: Amisha Stanley Measurements Intervals [place] Rate: 65 P: 6 GA: 238 QRS: -64 QRSD: 148 T: -24 QT: 464 QTc: 476 Interpretive Statements SINUS RHYTHM WITH FIRST DEGREE AV BLOCK POSSIBLE LEFT ATRIAL ENLARGEMENT RIGHT BUNDLE BRANCH BLOCK LEFT ANTERIOR FASCICULAR BLOCK Electronically Signed On 08-25-2016 0:01:37 EDT by Amisha Stanley
[2016-08-25] MEDS: *HR* Heparin 5,000 UNIT/ML VIAL SQ SCH (05:34)
[2016-08-25 06:19] LABS: Basophils % 1.3 %; Eosinophils % 3.8 %
[2016-08-25 06:21] LABS: Basophils # 0.1 K/mcL (0.0-0.2); Eosinophils # 0.3 K/mcL (0.0-0.6); Hematocrit 36.9 % (37.5-50.1); Hemoglobin 10.4 g/dL (12.9-16.9); Immature Granulocytes % 0.4 % (0-4); Lymphocytes # 1.6 K/mcL (0.6-4.6); Lymphocytes % 23.4 %; Mean Corpuscular HGB Conc 28.2 g/dL (31.6-35.5); Mean Corpuscular Hemoglobin 19.6 pg (28.0-33.3); Mean Corpuscular Volume 69.5 fL (83.0-100.0); Monocytes # 1.1 K/mcL (0.0-1.3); Monocytes % 16.5 %; Neutrophils # 3.8 K/mcL (1.6-8.9); Platelet Count 370 K/mcL (140-400); Red Blood Count 5.31 M/mcL (4.19-5.50); Red Cell Distribution Width 28.9 % (11.5-14.5); Segmented Neutrophils % 54.6 %
[2016-08-25 06:54] LABS: Anisocytosis 1+ (Not Present); Burr Cells 1+ (Not Present); Large Platelets Present (Not Present); Ovalocytes 1+ (Not Present); Platelet Estimate Normal (Normal); Poikilocytosis 1+ (Not Present)
[2016-08-25 06:59] LABS: Alanine Aminotransferase 17 Units/L (0-55); Albumin 3.2 g/dL (3.5-5.0); Albumin/Globulin Ratio 0.8 (1.1-2.2); Alkaline Phosphatase 69 Units/L (38-126); Aspartate Amino Transferase 24 Units/L (5-34); BUN/Creatinine Ratio 11 (6-26); Bilirubin,Total 1.2 mg/dL (0.2-1.2); Blood Urea Nitrogen 10 mg/dL (8-26); Carbon Dioxide 27 mEq/L (19-29); Chloride 100 mEq/L (98-109); Globulin 4.1 g/dL (2.4-3.5); Glucose 89 mg/dL (70-99); Osmolality,Calculated 283 (280-300); Potassium 3.8 mEq/L (3.5-4.5); Sodium 137 mEq/L (136-145); Total Protein 7.3 g/dL (6.0-8.3); eGFR For African Americans > 60 (> 60); eGFR For Non-African Americans > 60 (> 60)
[2016-08-25 07:04] VITALS: BP 143/76
--- NOTE | 2016-08-25 07:17 | Discharge Summary ---
<BrianlisajesusWilfredo Manley - Last Filed: 08/25/16 10:57> Date of Encounter: 08/25/16 Time of Encounter: 10:45 - Discharge Diagnosis (1) Systolic and diastolic CHF, acute on chronic Priority: Primary Status: Chronic (2) Anemia Priority: Secondary Status: Chronic Qualifiers: Anemia type: unspecified type Qualified Code(s): D64.9 - Anemia, unspecified (3) Hypertension Priority: Primary Status: Chronic Qualifiers: Hypertension type: essential hypertension Qualified Code(s): I10 - Essential (primary) hypertension (4) Type 2 diabetes mellitus Priority: Primary Status: Chronic Qualifiers: Diabetes mellitus complication status: without complication Diabetes mellitus custodial insulin use: without terminal manager use Qualified Code(s): E11.9 - Type 2 diabetes mellitus without complications (5) CAD in [place] artery Priority: Secondary Status: Chronic (6) Fall down stairs Priority: Primary Status: Acute Qualifiers: Qualified Code(s): W10.8XXA - Fall (on) (from) other stairs and steps, initial encounter (7) Elevated troponin I level Priority: Secondary Status: Chronic (8) DVT prophylaxis Priority: Secondary Status: Acute - Discharge Medications Home Medications: Acetaminophen [Tylenol] 650 mg PO Q6HR PRN 07/30/16 [History] Amlodipine Besylate 10 mg PO DAILY 07/30/16 [History] Aspirin Enteric Coated [Aspirin EC] 81 mg PO DAILY 07/30/16 [History] Metformin HCl [Glucophage] 1,000 mg PO BID 07/30/16 [History] Omeprazole [PriLOSEC] 20 mg PO DAILY 07/30/16 [History] Carvedilol [Coreg] 3.125 mg PO BIDWM #60 tablet 08/01/16 [Rx] Ferrous Sulfate 325 mg PO BIDWM #60 tablet 08/01/16 [Rx] Furosemide [Lasix] 20 mg PO DAILY #30 tablet 08/01/16 [Rx] Lisinopril [Zestril] 5 mg PO DAILY #30 tablet 08/01/16 [Rx] Potassium Chloride 10 meq PO DAILY #30 tab.er.prt 08/01/16 [Rx] Atorvastatin [Lipitor] 40 mg PO HS 08/23/16 [History] Allergies/Adverse Reactions: Allergies No Known Allergies Allergy (Verified 08/24/16 12:00) Procedures/tests Complete & Pending: Procedures Performed prior 72 hours Category Date Time Status CT head/brain wo con [CT] Stat Cat Scan 08/24/16 15:06 Completed Date of admission: 08/23/16 23:50 Primary care physician: Terry Arboleda MD Consults: 08/24/16 16:00 Consult to Occupational Therapy [CONS] Routine Comment: Evaluate, develop and implement POC Reason for Consult: eval Consult to Physical Therapy [CONS] Routine Comment: Evaluate, develop and implement POC Reason for Consult: eval Consult to Grey Inspector [CONS] Routine Reason for SW Consult: d/c Discharging clinician: Wilfredo Olson Anticipated date of discharge: 08/25/16 - Patient Status Disposition: Home, Self-Care Condition: Good Functional capacity at discharge: independent ambulation Overall status at discharge: patient is back to baseline - Discharge Instructions Instructions: Heart Failure (DC) Follow Up With: Terry Arboleda MD [Primary Care Provider] - Forms: ED Satisfaction Letter Additional Instructions: follow up with PCP in the next 3-5 days Undergo Colonoscopy and EGD for evaluation of microcytic anemia Take medications as prescribed. - Diet and Activity Activity: as per physical therapy Diet: diabetic diet, low fat, low cholesterol, low salt diet Interval History: Mr. Perez 76M with HTN, DM, systolic HF with EF 30-35% was admitted after presenting to the emergency department 4 days after a fall at home falling down the stairs. He denied any pain, loss of function, change in mental status or neurologic symptoms. He was found to have anemia and an MCV of 69. CXR demonstrated a small left sided pleural effusion with some pulmonary vascularization. He was started on IV Lasix at 40mg daily, fluid restrictions. He was continued on his Ferrous sulfate at home dose. Lab results remained stable inpatient. Vitals remained stable inpatient. His Troponin levels were 0.04,0.05,0.05 and previous chronic elevated troponins. No changes in his EKG. He was admitted to the inpatient setting and continued on home medications and treated for volume overload. He has a preop evaluation and scheduled colonoscopy this week per the patient. Patient has been seen and evaluated by PT and he does not need any PT requirements. He was evaluated on 08/25/2016 and deemed stable for discharge with close follow up with his PCP and to undergo his EGD and colonoscopy as planned. Hospital course: Mr. Perez is a 76 year old male - Time Spent with Patient Total time spent providing and/or coordinating discharge services: - Constitutional Vitals: Temp Pulse Resp BP Pulse Ox 98.2 F 76 18 143/76 97 08/25/16 06:33 08/25/16 06:33 08/25/16 06:33 08/25/16 06:33 08/25/16 06:33 General appearance: Present: A&O X 3, no acute distress, answers questions appropriately - Head Head exam: Present: atraumatic, normocephalic - Eye Eye exam: Present: PERRL, conjuntiva pink, sclera anicteric Pupils: Present: PERRL - ENT ENT exam: Present: mucous membranes moist - Neck Neck exam general surgery: Present: supple, trachea midline. Absent: lymphadenopathy - Respiratory Additional comments: crackles in right lower lung base. Clear to auscultation in all other lung [place]. - Cardiovascular Cardiovascular exam: Present: RRR, +S1, +S2. Absent: diastolic murmur, gallop, rubs, systolic murmur - GI/Abdominal GI/Abdominal exam: Present: normal bowel sounds, soft, no peritoneal signs. Absent: distended, tenderness - Extremities Exam Extremities exam: Present: warm, radial pulses palpable and symetrical. Absent : calf tenderness, cyanotic, pedal edema - Neurological Exam Neurological exam: Present: alert, oriented X3, no focal deficits. Absent: pronater drift, facial droop, speech deficit - Psychiatric Psychiatric exam: Present: normal affect, normal mood <Aneudy Herrmann - Last Filed: 08/25/16 17:59> Date of Encounter: 08/25/16 Procedures/tests Complete & Pending: Procedures Performed prior 72 hours Category Date Time Status CT head/brain wo con [CT] Stat Cat Scan 08/24/16 15:06 Completed Date of admission: 08/23/16 23:50 Primary care physician: Terry Arboleda MD Consults: 08/24/16 16:00 Consult to Occupational Therapy [CONS] Routine Comment: Evaluate, develop and implement POC Reason for Consult: eval Consult to Physical Therapy [CONS] Routine Comment: Evaluate, develop and implement POC Reason for Consult: eval Consult to Grey Inspector [CONS] Routine Reason for SW Consult: d/c Hospital course: Mr. Perez is a 76 year old male - Time Spent with Patient Total time spent providing and/or coordinating discharge services: - Constitutional Vitals: Temp Pulse Resp BP Pulse Ox 98.2 F 76 18 143/76 97 08/25/16 06:33 08/25/16 06:33 08/25/16 06:33 08/25/16 06:33 08/25/16 06:33 - Attending Attestation I examined this patient and my medical decision-making was reviewed with the IT DISASTER RECOVERY MANAGER/PA/Advanced Practice Nurse/Resident Physician. I agree with the documented findings, disposition and treatment plan as described except to the extent set forth below. D/C home today.
[2016-08-25] MEDS: Insulin LISPRO 300 UNITS/3 ML VIAL SQ SCH (07:53)
[2016-08-25] MEDS: Furosemide 40 MG/4 ML VIAL IVP SCH (09:06)
[2016-08-25] MEDS: amLODIPine 5 MG TABLET PO SCH (09:07)
[2016-08-25] MEDS: Aspirin Enteric Coated 81 MG Tablet PO SCH (09:07)
== END 2016-08-25 11:59 | disposition home or self-care (01) ==
LOC: 2ANU 18:13 → EMEROO 18:13 → 2ANU 23:30 → SUATTDRO 23:50 → 3NENU 08-24 13:41
PROVIDERS: ADMIT Internal Medicine; ATTEND Internal Medicine

== ENCOUNTER 2020-04-26 10:38 | Inpatient (IN) ==
[2020-04-26] MEDS ORDERED: lisinopriL 5 MG TABLET PO STA (11:45)
[2020-04-26 11:47] LABS: Basophils % 0.8 %; Eosinophils # 0.2 K/mcL (0.0-0.6); Hematocrit 42.2 % (37.5-50.1); Hemoglobin 13.1 g/dL (12.9-16.9); Immature Granulocytes % 0.2 % (0-4); Lymphocytes # 1.5 K/mcL (0.6-4.6); Lymphocytes % 29.4 %; Mean Corpuscular Hemoglobin 30.1 pg (28.0-33.3); Mean Platelet Volume 11.2 fL (9.4-12.4); Monocytes # 0.9 K/mcL (0.0-1.3); Monocytes % 16.5 %; Neutrophils # 2.6 K/mcL (1.6-8.9); Platelet Count 186 K/mcL (140-400); Red Blood Count 4.35 M/mcL (4.19-5.50); Red Cell Distribution Width 14.7 % (11.5-14.5); Segmented Neutrophils % 49.1 %; White Blood Count 5.2 K/mcL (4.3-11.1)
[2020-04-26 11:55] LABS: INR 1.3; Prothrombin Time 14.8 Seconds (9.4-12.1)
[2020-04-26 12:12] LABS: BUN/Creatinine Ratio 17 (6-26); Blood Urea Nitrogen 17 mg/dL (8-23); Carbon Dioxide 26 mEq/L (23-29); Chloride 102 mEq/L (98-107); Glucose 84 mg/dL (70-105); Osmolality,Calculated 283 (280-300); Potassium 4.2 mEq/L (3.5-5.1); Sodium 136 mEq/L (136-145); eGFR For African Americans > 60 (> 60); eGFR For Non-African Americans > 60 (> 60)
[2020-04-26] MEDS ORDERED: Furosemide 20 MG/2 ML VIAL IVP ONE (12:18)
[2020-04-26 12:24] LABS: Troponin I 0.06 ng/mL (< 0.04)
[2020-04-26] MEDS ORDERED: Naloxone 0.4 MG/ML INJ IVP PRN (13:24)
[2020-04-26] MEDS ORDERED: Perflutren Lipid Microsphere 1.3 ML in 0.9 % Sodium Chloride 8.7 ML IVP PRN (13:38)
[2020-04-26] MEDS ORDERED: *HR* Heparin 5,000 UNIT/ML VIAL IVP ONE (13:55)
[2020-04-26] MEDS ORDERED: *HR* Heparin 5,000 UNIT/ML VIAL IVP PRN ×2 (13:55)
[2020-04-26] MEDS ORDERED: Heparin 25,000UNIT/250ML 1/2NS 25,000 UNIT/250 ML IV.SOLN IVC SCH (14:00)
[2020-04-26 14:51] LABS: Heparin anti-factor XA UFH < 0.04 IU/mL (0.30-0.70); INR 1.3; Prothrombin Time 14.8 Seconds (9.4-12.1)
[2020-04-26 14:55] LABS: Hematocrit 39.7 % (37.5-50.1); Hemoglobin 12.3 g/dL (12.9-16.9); Mean Corpuscular Hemoglobin 29.5 pg (28.0-33.3); Mean Corpuscular Volume 95.2 fL (83.0-100.0); Mean Platelet Volume 11.3 fL (9.4-12.4); Platelet Count 192 K/mcL (140-400); Red Blood Count 4.17 M/mcL (4.19-5.50); Red Cell Distribution Width 14.9 % (11.5-14.5); White Blood Count 5.4 K/mcL (4.3-11.1)
[2020-04-26] MEDS ORDERED: Acetaminophen 325 MG TABLET PO PRN (19:23)
[2020-04-26] MEDS ORDERED: Furosemide 40 MG/4 ML VIAL IVP SCH (21:00)
[2020-04-27] MEDS ORDERED: Naloxone 0.4 MG/ML INJ IVP PRN (00:55)
[2020-04-27] MEDS: Acetaminophen 325 MG TABLET PO PRN ×2 (02:53→17:52)
[2020-04-27] MEDS ORDERED: lisinopriL 5 MG TABLET PO SCH ×2 (06:45→09:00)
[2020-04-27] MEDS ORDERED: amLODIPine 5 MG TABLET PO SCH ×2 (06:45→09:00)
[2020-04-27] MEDS: Furosemide 40 MG/4 ML VIAL IVP SCH ×2 (06:50→17:40)
[2020-04-27 08:23] LABS: Hematocrit 42.4 % (37.5-50.1); Hemoglobin 13.7 g/dL (12.9-16.9); Mean Corpuscular HGB Conc 32.3 g/dL (31.6-35.5); Mean Corpuscular Hemoglobin 29.9 pg (28.0-33.3); Mean Corpuscular Volume 92.6 fL (83.0-100.0); Mean Platelet Volume 11.3 fL (9.4-12.4); Platelet Count 207 K/mcL (140-400); Red Blood Count 4.58 M/mcL (4.19-5.50); Red Cell Distribution Width 14.8 % (11.5-14.5)
[2020-04-27] MEDS: lisinopriL 20 MG TABLET PO SCH (08:42)
[2020-04-27 08:43] LABS: BUN/Creatinine Ratio 17 (6-26); Blood Urea Nitrogen 17 mg/dL (8-23); Calcium 10.1 mg/dL (8.6-10.3); Carbon Dioxide 24 mEq/L (23-29); Chloride 98 mEq/L (98-107); Glucose 146 mg/dL (70-105); Osmolality,Calculated 284 (280-300); Potassium 3.7 mEq/L (3.5-5.1); Sodium 135 mEq/L (136-145); eGFR For African Americans > 60 (> 60); eGFR For Non-African Americans > 60 (> 60)
[2020-04-27] MEDS ORDERED: Perflutren Lipid Microsphere 1.3 ML in 0.9 % Sodium Chloride 8.7 ML IVP PRN (10:12)
[2020-04-27 10:56] LABS: Magnesium 1.9 mg/dL (1.6-2.6)
[2020-04-27 11:11] LABS: Thyroid Stimulating Hormone 0.789 mcIU/mL (0.340-5.600)
[2020-04-27] MEDS: Aspirin Enteric Coated 81 MG Tablet PO SCH (11:23)
[2020-04-27] MEDS: Isosorbide MONOnitrate (24 HR) 30 MG TAB.ER.24H PO SCH (11:24)
[2020-04-27] MEDS ORDERED: D5% in Water 1,000 ML IVC PRN (14:53)
[2020-04-27] MEDS ORDERED: *HR* Dextrose 50 % in Water (Vial) 50 ML VIAL IVP PRN (14:53)
[2020-04-27] MEDS ORDERED: Dextrose Gel 15 GM/37.5 ML TUBE PO PRN ×2 (14:53)
[2020-04-27] MEDS: Insulin LISPRO 300 UNITS/3 ML VIAL SUBQ SCH (17:42)
[2020-04-28] MEDS ORDERED: niCARdipine 20 MG/200 ML MLS IVC SCH (00:45)
[2020-04-28 01:50] LABS: Hematocrit 40.8 % (37.5-50.1); Mean Corpuscular HGB Conc 31.9 g/dL (31.6-35.5); Mean Corpuscular Hemoglobin 29.7 pg (28.0-33.3); Mean Corpuscular Volume 93.4 fL (83.0-100.0); Mean Platelet Volume 11.3 fL (9.4-12.4); Platelet Count 199 K/mcL (140-400); Red Blood Count 4.37 M/mcL (4.19-5.50); Red Cell Distribution Width 14.6 % (11.5-14.5)
[2020-04-28] MEDS: niCARdipine 40 MG/200 ML MLS IVC SCH ×2 (02:04→09:00)
[2020-04-28 02:09] LABS: BUN/Creatinine Ratio 17 (6-26); Blood Urea Nitrogen 19 mg/dL (8-23); Carbon Dioxide 26 mEq/L (23-29); Chloride 98 mEq/L (98-107); Glucose 151 mg/dL (70-105); Osmolality,Calculated 283 (280-300); Sodium 134 mEq/L (136-145); eGFR For African Americans > 60 (> 60); eGFR For Non-African Americans > 60 (> 60)
[2020-04-28] MEDS ORDERED: Regadenoson 0.4 MG/5 ML SYRINGE IVP ONE (06:09)
[2020-04-28] MEDS: Insulin LISPRO 300 UNITS/3 ML VIAL SUBQ SCH ×3 (08:41→17:48)
[2020-04-28] MEDS ORDERED: amLODIPine 5 MG TABLET PO SCH (09:00)
[2020-04-28] MEDS: Isosorbide MONOnitrate (24 HR) 30 MG TAB.ER.24H PO SCH (09:00)
[2020-04-28] MEDS: Aspirin Enteric Coated 81 MG Tablet PO SCH (09:00)
[2020-04-28] MEDS: lisinopriL 20 MG TABLET PO SCH ×2 (09:00→14:17)
[2020-04-28] MEDS: Furosemide 40 MG/4 ML VIAL IVP SCH ×2 (09:00→17:48)
[2020-04-28] MEDS: amLODIPine 5 MG TABLET PO SCH (14:17)
[2020-04-28] MEDS: Apixaban 5 MG TABLET PO SCH (20:12)
[2020-04-29 01:50] LABS: Basophils % 0.5 %; Eosinophils # 0.2 K/mcL (0.0-0.6); Eosinophils % 2.5 %; Hematocrit 41.3 % (37.5-50.1); Hemoglobin 13.1 g/dL (12.9-16.9); Immature Granulocytes % 0.3 % (0-4); Lymphocytes # 1.7 K/mcL (0.6-4.6); Lymphocytes % 21.9 %; Mean Corpuscular HGB Conc 31.7 g/dL (31.6-35.5); Mean Corpuscular Hemoglobin 29.4 pg (28.0-33.3); Mean Corpuscular Volume 92.8 fL (83.0-100.0); Mean Platelet Volume 10.9 fL (9.4-12.4); Monocytes # 1.7 K/mcL (0.0-1.3); Monocytes % 21.5 %; Neutrophils # 4.1 K/mcL (1.6-8.9); Platelet Count 208 K/mcL (140-400); Red Blood Count 4.45 M/mcL (4.19-5.50); Red Cell Distribution Width 14.8 % (11.5-14.5); Segmented Neutrophils % 53.3 %; White Blood Count 7.7 K/mcL (4.3-11.1)
[2020-04-29 02:08] LABS: BUN/Creatinine Ratio 22 (6-26); Blood Urea Nitrogen 25 mg/dL (8-23); Calcium 9.2 mg/dL (8.6-10.3); Carbon Dioxide 26 mEq/L (23-29); Chloride 99 mEq/L (98-107); Glucose 136 mg/dL (70-105); Osmolality,Calculated 286 (280-300); Potassium 3.8 mEq/L (3.5-5.1); Sodium 135 mEq/L (136-145); eGFR For African Americans > 60 (> 60); eGFR For Non-African Americans > 60 (> 60)
[2020-04-29 02:22] LABS: Anisocytosis 1+ (Not Present); Platelet Estimate Normal (Normal)
[2020-04-29] MEDS: Insulin LISPRO 300 UNITS/3 ML VIAL SUBQ SCH ×2 (08:02→12:00)
[2020-04-29] MEDS: Furosemide 40 MG/4 ML VIAL IVP SCH (08:03)
[2020-04-29] MEDS: amLODIPine 5 MG TABLET PO SCH (08:04)
[2020-04-29] MEDS: Apixaban 5 MG TABLET PO SCH (08:04)
[2020-04-29] MEDS: lisinopriL 20 MG TABLET PO SCH (08:04)
[2020-04-29] MEDS: Isosorbide MONOnitrate (24 HR) 30 MG TAB.ER.24H PO SCH (08:04)
[2020-04-29] MEDS: Aspirin Enteric Coated 81 MG Tablet PO SCH (08:04)
[2020-04-29] MEDS ORDERED: hydrALAZINE 25 MG TABLET PO SCH (09:00)
[2020-04-29 11:19] VITALS: BP 152/80
== END 2020-04-29 12:40 | disposition home or self-care (01) | DRG 280 ==
LOC: EMEROOARM 10:38 → ICNU 10:38 → SUATTDRO 13:24 → ICNU 13:28 → 2NNU 20:56
PROVIDERS: ADMIT Internal Medicine; ATTEND Internal Medicine